=== PATIENT | male | born 1960 | race Caucasian/White ===

== ENCOUNTER 2021-12-15 13:49 | Emergency (ER) | payer SELFPAY ==
[2021-12-15] MEDS ORDERED: ENDOCET 5-3251 EACH PO (19:20)
== END 2021-12-15 19:56 | disposition home or self-care (01) ==
LOC: ER1 13:49
DX: S22.42XA Multiple fractures of ribs, left side, initial encounter for closed fracture (principal); W19.XXXA Unspecified fall, initial encounter
CPT/HCPCS: 71111; 99283